=== PATIENT | male | born 1995 | race Caucasian/White ===

== ENCOUNTER 2016-11-15 13:48 | Emergency (ER) | payer OTHER ==
[~2016-11-15] VITALS: Ht 180.3 cm; Wt 83.9 kg
[~2016-11-15 13:48] MED LIST: BACTRIM DS 8001 TA1 PO; CIPRO500 MG PO; CLEOCIN150 MG PO; CLINDAMYCIN HC300 MG PO; MOTRIN800 MG PO; Motrin,Rufen800 MG PO; PREDNISONE10 MG PO; PREDNISONE50 MG PO; TYLENOL WITH CO1 TA1 PO; ULTRAM50 MG PO; VENTOLIN H0.09 MG/AC INH; ZITHROMAX250 MG PO
[2016-11-15 14:55] LABS: BASO # 0.1 10*3/uL (0.0-0.1); BASO % 0.8 % (0.0-1.0); EOS # 0.1 10*3/uL (0.0-0.4); EOS % 1.3 % (1.0-4.0); HEMATOCRIT 43.8 % (42.0-52.0); HEMOGLOBIN 15.6 g/dl (14.0-18.0); LYMPH # 2.4 10*3/uL (1.3-4.4); LYMPH % 38.4 % (27.0-41.0); MEAN CELL VOLUME 87.8 fl (80.0-94.0); MEAN CORPUSCULAR HGB 31.3 pg (27.0-31.0); MEAN CORPUSCULAR HGB CONC 35.6 g/dl (33.0-37.0); MEAN PLATELET VOLUME 9.7 fl (9.6-12.3); MONO # 0.4 10*3/uL (0.1-1.0); MONO % 6.3 % (3.0-9.0); NEUT # 3.4 10*3/uL (2.3-7.9); PLATELET COUNT AUTOMATED 187 10*3/uL (130-400); RED BLOOD COUNT 4.99 10*6/uL (4.50-5.90); RED CELL DISTRI WIDTH 12.5 % (0-14.5); WHITE BLOOD COUNT 6.4 10*3/uL (4.8-10.8)
[2016-11-15 15:03] LABS: BILIRUBIN NEGATIVE (NEGATIVE); BLOOD NEGATIVE (NEGATIVE); CLARITY CLEAR (CLEAR); COLOR YELLOW (YELLOW); GLUCOSE NEGATIVE (NEGATIVE); KETONE NEGATIVE (NEGATIVE); LEUKO ESTERASE NEGATIVE (NEGATIVE); NITRITE NEGATIVE (NEGATIVE); PH 5.5 (5.0-9.0); PROTEIN NEGATIVE (NEGATIVE); UROBILINOGEN 0.2 E.U./dl (0.2-1.0)
[2016-11-15 15:11] LABS: ALBUMIN 4.1 gm/dl (3.1-4.5); ALKALINE PHOSPHATASE 71 U/L (45-117); BILIRUBIN, TOTAL 0.2 mg/dl (0.2-1.0); BUN 13 mg/dl (7-24); CARBON DIOXIDE 28 mmol/L (21-32); CHLORIDE 108 mmol/L (98-107); EST GLOM FILT AFRICAN AMERICAN > 60 ml/min; GLUCOSE 85 mg/dL (65-99); POTASSIUM 4.5 mmol/L (3.5-5.1); SGOT/AST 12 IU/L (3-35); SGPT/ALT 26 U/L (12-78); SODIUM 143 mmol/L (136-145); TOTAL PROTEIN 7.3 gm/dL (6.4-8.2)
[2016-11-15 15:47] LABS: URINE REFLEX COMMENT NO (NO); WBC 0-2 wbc/hpf (0-5)
[2016-11-15] MEDS ORDERED: ANUSOL-HC25 MG R (15:53)
== END 2016-11-15 15:58 | disposition home or self-care (01) ==
LOC: ED 13:48
PROVIDERS: Physician Assistant
DX: R30.0 Dysuria (principal); F17.200 Nicotine dependence, unspecified, uncomplicated; Z88.0 Allergy status to penicillin

== ENCOUNTER 2017-04-08 06:15 | Emergency (ER) | payer OTHER ==
[~2017-04-08] VITALS: Ht 180.3 cm; Wt 83.9 kg
[~2017-04-08 06:15] MED LIST changes: +ANUSOL-HC25 MG R
[2017-04-08] MEDS ORDERED: Motrin,Rufen800 MG PO (07:06)
== END 2017-04-08 07:31 | disposition home or self-care (01) ==
LOC: ED 06:15
DX: M54.9 Dorsalgia, unspecified (principal); F17.200 Nicotine dependence, unspecified, uncomplicated; Z88.0 Allergy status to penicillin

== ENCOUNTER 2017-08-03 18:29 | Emergency (ER) | payer OTHER ==
[~2017-08-03] VITALS: Ht 172.7 cm; Wt 65.8 kg
== END 2017-08-03 20:12 | disposition home or self-care (01) ==
LOC: ED 18:29
DX: S93.402A Sprain of unspecified ligament of left ankle, initial encounter (principal); F17.200 Nicotine dependence, unspecified, uncomplicated; Z88.0 Allergy status to penicillin; X50.1XXA Overexertion from prolonged static or awkward postures, initial encounter; Y93.89 Activity, other specified; Y92.89 Other specified places as the place of occurrence of the external cause; Y99.8 Other external cause status

== ENCOUNTER 2018-04-02 10:17 | Emergency (ER) | payer OTHER ==
[~2018-04-02] VITALS: Ht 180.3 cm; Wt 79.4 kg
[2018-04-02] MEDS ORDERED: ROBAXIN500 M1 PO (12:00)
[2018-04-02] MEDS ORDERED: Motrin,Rufen800 MG PO (12:00)
== END 2018-04-02 12:24 | disposition home or self-care (01) ==
LOC: ED 10:17
DX: S46.911A Strain of unspecified muscle, fascia and tendon at shoulder and upper arm level, right arm, initial encounter (principal); R51 Headache; Z88.0 Allergy status to penicillin; V47.5XXA Car driver injured in collision with fixed or stationary object in traffic accident, initial encounter; Y93.89 Activity, other specified; Y92.413 State road as the place of occurrence of the external cause; Y99.8 Other external cause status

== ENCOUNTER 2022-04-11 09:48 | Emergency (ER) | payer SELFPAY ==
[~2022-04-11] VITALS: Ht 180.3 cm; Wt 86.2 kg
[~2022-04-11 09:48] MED LIST changes: +ROBAXIN500 M1 PO
[2022-04-11 11:07] LABS: BILIRUBIN Negative (Negative); BLOOD Negative (Negative); CLARITY Clear (Clear); COLOR Dark Yellow (Yellow); GLUCOSE Negative (Negative); KETONE Trace (Negative); LEUKO ESTERASE Negative (Negative); NITRITE Negative (Negative); SPECIFIC GRAVITY >= 1.030 (1.001-1.030)
[2022-04-11] MEDS ORDERED: TYLENOL325 M1 PO (11:07)
[2022-04-11] MEDS ORDERED: CYCLOBENZAPRINE10 MG PO (11:07)
[2022-04-11] MEDS ORDERED: NAPROXEN250 MG PO (11:07)
[2022-04-11 11:17] LABS: BACTERIA 1+; EPITHELIAL CELLS 0-2; MUCOUS 3+; WBC 0-2 wbc/hpf (0-5)
== END 2022-04-11 11:12 | disposition home or self-care (01) ==
LOC: ED 09:48
PROVIDERS: Emergency Medicine
DX: M54.42 Lumbago with sciatica, left side (principal); Z88.0 Allergy status to penicillin; F17.200 Nicotine dependence, unspecified, uncomplicated

== ENCOUNTER 2023-05-01 10:31 | Emergency (ER) | payer SELFPAY ==
[~2023-05-01] VITALS: Ht 180.3 cm; Wt 95.3 kg
[~2023-05-01 10:31] MED LIST changes: +CYCLOBENZAPRINE10 MG PO; +NAPROXEN250 MG PO; +TYLENOL325 M1 PO
== END 2023-05-01 12:22 | disposition home or self-care (01) ==
LOC: ED 10:31
DX: S90.512A Abrasion, left ankle, initial encounter (principal); S60.812A Abrasion of left wrist, initial encounter; M54.50 Low back pain, unspecified; Z88.0 Allergy status to penicillin; F17.200 Nicotine dependence, unspecified, uncomplicated; W01.0XXA Fall on same level from slipping, tripping and stumbling without subsequent striking against object, initial encounter; Y93.89 Activity, other specified; Y92.89 Other specified places as the place of occurrence of the external cause; Y99.8 Other external cause status

== ENCOUNTER 2023-05-09 12:22 | Emergency (ER) | payer SELFPAY ==
[~2023-05-09] VITALS: Ht 177.8 cm; Wt 90.7 kg
[2023-05-09] MEDS ORDERED: CLINDAMYCIN HC300 MG PO (13:17)
== END 2023-05-09 13:06 | disposition home or self-care (01) ==
LOC: ED 12:22
DX: K02.9 Dental caries, unspecified (principal); Z88.0 Allergy status to penicillin